=== PATIENT | female | born 1980 | race Caucasian/White ===

== ENCOUNTER → 2016-12-22 | Outpatient (CLI) | payer OTHER ==
--- NOTE | 2016-12-22 19:00 | NUR ---
EVALUATION 2 HR: Client was referred for this evaluation as is required for admission for Codependency treatment. Client was encouraged to complete CoDep treatment while her SO was in residential treatment. Client has a history of chemical abuse as well tho has been clean and sober for a period of months. Tentative start date is 01/07
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
== END | disposition home or self-care (01) ==
LOC: ADTC.GI 14:29
DX: F12.20 Cannabis dependence, uncomplicated (principal); F15.20 Other stimulant dependence, uncomplicated; F14.21 Cocaine dependence, in remission